=== PATIENT | male | born 1960 | race Caucasian/White ===

== ENCOUNTER 2016-09-06 20:26 | Emergency (ER) | payer MEDICARE ==
[2016-09-07 02:54] LABS: HEMOGLOBIN 13.3 gm/dl (14.0-17.5); RED BLOOD COUNT 4.13 M/UL (4.20-5.50); WHITE BLOOD COUNT 8.3 K/UL (4.5-11.0)
[2016-09-07 03:19] LABS: BUN/CREATININE RATIO 22 (0-10)
== END 2016-09-07 09:14 | disposition home or self-care (01) ==
LOC: ER1 20:26
PROVIDERS: Emergency Medicine
DX: J20.9 Acute bronchitis, unspecified (principal)
CPT/HCPCS: 36415; 71020; 80053; 83605; 83880; 84484; 85025; 87040; 87077; 87186; 93005; 96361; 96365; 96375; 99284; J2930; J7050

== ENCOUNTER → 2016-09-06 | Outpatient (CLI) | payer MEDICARE ==
[~2016-09-06] MED LIST: ACID CONTROL150 MG PO; ASPIR 8181 MG PO; CLARITIN10 M2 PO; COZAAR100 MG PO; DOCUSATE SODIU250 MG PO; EC-NAPROSYN500 MG PO; METOPROLOL SUC100 MG PO; NEURONTIN 300300 MG PO; PERCOCET 5/325 T1 EA PO; PHENERGAN 12.12.5 M1 PO; ZYLOPRIM 100 M100 MG PO
== END ==
LOC: RAD 16:07
DX: R05 Cough (principal)
CPT/HCPCS: 71020; J7050

== ENCOUNTER 2020-07-17 23:32 | Emergency (ER) | payer OTHER ==
[2020-07-18] MEDS ORDERED: VISTARIL 25 MG25 MG PO (02:01)
[2020-07-18] MEDS ORDERED: IBUPROFEN800 MG PO (02:41)
== END 2020-07-18 03:01 | disposition home or self-care (01) ==
LOC: ER1 23:32
DX: M70.42 Prepatellar bursitis, left knee (principal); I10 Essential (primary) hypertension; F17.200 Nicotine dependence, unspecified, uncomplicated; Z85.528 Personal history of other malignant neoplasm of kidney
CPT/HCPCS: 73562; 99283

== ENCOUNTER 2020-09-07 21:40 | Emergency (ER) | payer OTHER ==
[~2020-09-07 21:40] MED LIST changes: +IBUPROFEN800 MG PO; +VISTARIL 25 MG25 MG PO
[2020-09-07 22:04] LABS: HEMOGLOBIN 15.5 gm/dl (14.0-17.5); RED BLOOD COUNT 4.97 M/UL (4.20-5.50); WHITE BLOOD COUNT 7.5 K/UL (4.5-11.0)
[2020-09-07 22:18] LABS: BUN/CREATININE RATIO 10 (0-10)
== END 2020-09-08 04:38 | disposition short-term general hospital (02) ==
LOC: ER1 21:40
DX: R07.2 Precordial pain (principal); R07.89 Other chest pain; Z20.822 Contact with and (suspected) exposure to COVID-19; R45.851 Suicidal ideations
CPT/HCPCS: 71045; 80053; 82550; 82553; 83874; 83880; 84484; 85025; 93005; 99285; U0002

== ENCOUNTER 2020-10-09 04:22 | Emergency (ER) | payer OTHER ==
[2020-10-09 05:42] LABS: HEMOGLOBIN 14.4 gm/dl (14.0-17.5); RED BLOOD COUNT 4.78 M/UL (4.20-5.50); WHITE BLOOD COUNT 9.2 K/UL (4.5-11.0)
[2020-10-09 05:52] LABS: BUN/CREATININE RATIO 14 (0-10)
== END 2020-10-09 10:15 | disposition home or self-care (01) ==
LOC: ER1 04:22
PROVIDERS: Student in an Organized Health Care Education/Training Program
DX: M25.552 Pain in left hip (principal); F10.10 Alcohol abuse, uncomplicated; F12.90 Cannabis use, unspecified, uncomplicated; Z20.822 Contact with and (suspected) exposure to COVID-19; F17.210 Nicotine dependence, cigarettes, uncomplicated; Z87.442 Personal history of urinary calculi; Z59.0 Homelessness
CPT/HCPCS: 0240U; 80053; 80307; 81001; 83735; 85025; 93005; 99283; G0480

== ENCOUNTER 2020-10-13 22:02 | Emergency (ER) | payer OTHER ==
[2020-10-14 00:38] LABS: HEMOGLOBIN 13.9 gm/dl (14.0-17.5); RED BLOOD COUNT 4.59 M/UL (4.20-5.50); WHITE BLOOD COUNT 8.6 K/UL (4.5-11.0)
[2020-10-14 00:58] LABS: BUN/CREATININE RATIO 14 (0-10)
== END 2020-10-14 15:40 | disposition short-term general hospital (02) ==
LOC: ER1 22:02
PROVIDERS: Physician Assistant
DX: F10.10 Alcohol abuse, uncomplicated (principal); F15.10 Other stimulant abuse, uncomplicated; F17.210 Nicotine dependence, cigarettes, uncomplicated; Z20.822 Contact with and (suspected) exposure to COVID-19
CPT/HCPCS: 80053; 80307; 83735; 85025; 96374; 96375; 99284; G0480; J2060; J3411; J3475; J7030; U0002